=== PATIENT | male | born 1995 | race Caucasian/White ===

== ENCOUNTER 2019-07-27 17:20 | Emergency (ER) | payer BC ==
--- NOTE | 2019-07-27 17:40 | EDM.PDOC ---
ED HPI GENERAL MEDICAL PROBLEM - General Chief Complaint: Chest Pain Stated Complaint: chest pain Time Seen by Provider: 07/27/19 17:25 Source of Information: Reports: Patient History Limitations: Reports: No Limitations - History of Present Illness INITIAL COMMENTS - FREE TEXT/NARRATIVE: This patient is a 23 year old male that presents to the ER. Patient reports that he started about 2 days ago while at work having central chest pain. No known injury. Patient reports that pain continued into the evening after work and while at rest. No changes with rest or activity. Patient reports that the pain yesterday began to move into his left shoulder and then to his left arm to his fingers. He reports the pain is "dull", with some mild numbness to the left arm that has been constant. He reports that he took Tylenol about 2 hours ago, its the first thing he has taken for the pain. He now reports in the ER that his pain/numbness/dull is a 0/10. Onset Date: 07/25/19 Duration: Day(s): (2) Location: Reports: Chest, Upper Extremity, Left Quality: Reports: Dull Severity: Mild Improves with: Reports: None Worsens with: Reports: Movement (sometimes) Associated Symptoms: Reports: Chest Pain. 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 [No Known Home Meds] 07/27/19 [History] Past Medical History Respiratory History: Reports: Asthma Social & Family History - Tobacco Use Smoking Status *Q: Never Smoker - Caffeine Use Caffeine Use: Reports: Coffee, Soda - Recreational Drug Use Recreational Drug Use: No ED ROS GENERAL - Review of Systems Review Of Systems: See Below Constitutional: Reports: No Symptoms HEENT: Reports: Rhinitis. Denies: Sinus Problem, Throat Pain Respiratory: Reports: No Symptoms Cardiovascular: Reports: Chest Pain. Denies: Dyspnea on Exertion, Edema, Lightheadedness, Palpitations, PND, Syncope Endocrine: Reports: No Symptoms GI/Abdominal: Reports: No Symptoms. Denies: Abdominal Pain, Diarrhea, Nausea, Vomiting : Reports: No Symptoms Musculoskeletal: Reports: No Symptoms Skin: Reports: No Symptoms Neurological: Reports: Numbness (numbness, dullness LUE comes and goes. ). Denies: Confusion, Dizziness, Headache, Tingling Psychiatric: Reports: No Symptoms Hematologic/Lymphatic: Reports: No Symptoms Immunologic: Reports: No Symptoms ED EXAM, GENERAL - Physical Exam Exam: See Below Exam Limited By: No Limitations General Appearance: Alert, WD/WN, No Apparent Distress, Anxious Eye Exam: Bilateral Eye: Normal Inspection Ears: Normal External Exam, Normal Canal, Hearing Grossly Normal, Normal TMs Ear Exam: Bilateral Ear: Auricle Normal, Canal Normal, TM normal Nose: Normal Inspection, Normal Mucosa, No Blood Throat/Mouth: Normal Inspection, Normal Lips, Normal Teeth, Normal Gums, Normal Oropharynx, Normal Voice, No Airway Compromise Head: Atraumatic, Normocephalic Neck: Normal Inspection, Supple, Non-Tender, Full Range of Motion Respiratory/Chest: No Respiratory Distress, Lungs Clear, Normal Breath Sounds, No Accessory Muscle Use, Chest Non-Tender. No: Respiratory Distress, Decreased Breath Sounds, Crackles, Rales, Rhonchi, Wheezing, Stridor, Accessory Muscle Use , Retractions, Splinting, Prolonged Expiration Cardiovascular: Normal Peripheral Pulses, Regular Rate, Rhythm, No Edema, No Gallop, No JVD, No Murmur, No Rub Peripheral Pulses: 2+: Brachial (L), Brachial (R), Radial (L), Radial (R), Posterior Tibial (L), Posterior Tibial (R) GI/Abdominal: Soft, Non-Tender, No Distention, No Mass, Pelvis Stable Back Exam: Normal Inspection, Full Range of Motion. No: CVA Tenderness (L), CVA Tenderness (R), Decreased Range of Motion, Muscle Spasm, Paraspinal Tenderness, Vertebral Tenderness Extremities: Normal Inspection, Normal Range of Motion, No Pedal Edema, Normal Capillary Refill, Other (grabbing around the patients arm during exam he reported it mildly made it "dull". There is no erdness, swelling, heat, open wounds, loss of sensation, loss of motor function. No injury known. Pulses +2, cap refill < 2 sec, sensory/motor function intact. Neurovascular intact. ). No : Pedal Edema, Slow Capillary Refill, Joint Swelling, Limited Range of Motion, Increased Warmth, Redness Neurological: Alert, Oriented, CN II-XII Intact, Normal Cognition, Normal Gait, No Motor/Sensory Deficits Psychiatric: Normal Mood, Anxious Skin Exam: Warm, Dry, Intact, Normal Color, No Rash Lymphatic: No Adenopathy EKG INTERPRETATION EKG Date: 07/27/19 Time: 17:15 Rhythm: NSR Rate (Beats/Min): 91 [place]: Normal P-Wave: Present QRS: Normal ST-T: Normal QT: Normal Comparison: NA - No Prior EKG EKG Interpretation Comments: artifact, but no ST Elevation Course - Vital Signs Last Recorded V/S: Last Vital Signs Temp 98.0 F 07/27/19 17:20 Pulse 80 07/27/19 17:20 Resp 16 07/27/19 17:35 BP 138/72 07/27/19 17:50 Pulse Ox 98 07/27/19 17:35 - Orders/Labs/Meds Orders: Active Orders 24 hr Category Date Time Status EKG Documentation Completion [RC] STAT Care 07/27/19 17:20 Active Chest 2V [CR] Stat Exams 07/27/19 17:23 Taken Labs: Laboratory Tests 07/27/19 07/27/19 07/27/19 Range/Units 17:35 17:35 17:35 WBC 5.1 (5.0-10.0) 10^3/uL RBC 5.31 (4.50-6.00) 10^6/uL Hgb 17.2 (14.0-18.0) g/dL Hct 48.1 (40.0-54.0) % MCV 90.6 (82.0-94.0) fL MCH 32.4 H (27.0-32.0) pg MCHC 35.8 (33.0-38.0) g/dL RDW Coeff of Antoine 12.9 (11.0-15.0) % Plt Count 208 (150-400) 10^3/uL Neut % (Auto) 40.2 (35-85) % Lymph % (Auto) 45.7 (10-55) % Emanuel % (Auto) 11.9 (0-16) % Eos % (Auto) 1.8 (0-5) % Baso % (Auto) 0.4 (0-3) % Neut # (Auto) 2.07 (1.80-7.00) 10^3/uL Lymph # (Auto) 2.35 (1.00-4.80) 10^3/uL Emanuel # (Auto) 0.61 (0.00-0.80) 10^3/uL Eos # (Auto) 0.09 (0.00-0.45) 10^3/uL Baso # (Auto) 0.02 10^3/uL PT 10.0 (9.7-12.3) SEC INR 0.99 (0.92-1.18) Sodium 140 (136-145) mEq/L Potassium 4.0 (3.5-5.0) mEq/L Chloride 105 (98-106) mEq/L Carbon Dioxide 25 (21-32) mmol/L BUN 8 (7-18) mg/dL Creatinine 1.0 (0.7-1.3) mg/dL Est Cr Clr Drug Dosing 126.10 mL/min Estimated GFR (MDRD) > 60 (>=60) mL/min Glucose 132 H (75-99) mg/dL Calcium 8.8 (8.4-10.1) mg/dL Total Bilirubin 0.5 (0.0-1.0) mg/dL AST 20 (15-37) U/L ALT 57 (12-78) U/L Alkaline Phosphatase 75 (46-116) U/L Lactate Dehydrogenase 176 (100-190) U/L Creatine Kinase 176 (35-232) U/L Troponin I < 0.017 (0.00-0.06) ng/mL Total Protein 7.4 (6.4-8.2) g/dL Albumin 4.2 (3.4-5.0) g/dL Lipase 142 (73-393) U/L - Radiology Interpretation Free Text/Narrative:: CXR: no acute findings - Re-Assessments/Exams Free Text/Narrative Re-Assessment/Exam: 07/27/19 18:09 HEART SCORE 0. Will discharge. Departure - Departure Time of Disposition: 18:07 Disposition: Home, Self-Care 01 Condition: Good Clinical Impression: Atypical chest pain Instructions: Chest Wall Pain, [id number], Nonspecific Chest Pain, Adult, [id number] Referrals: PCP,None [Primary Care Provider] - Forms: ED Department Discharge Additional Instructions: Followup with primary care provider as needed and for a recheck in the Clinic Return to the ER for worsening of condition or any emergent concerns Tylenol or Motrin for pain as needed Sepsis Event Note - Evaluation Sepsis Screening Result: No Definite Risk - Focused Exam Date Exam was Performed: 07/28/19 Time Exam was Performed: 09:19 - My Orders Last 24 Hours: My Active Orders 07/27/19 17:20 EKG Documentation Completion [RC] STAT 07/27/19 17:23 Chest 2V [CR] Stat - Assessment/Plan Last 24 Hours: My Active Orders 07/27/19 17:20 EKG Documentation Completion [RC] STAT 07/27/19 17:23 Chest 2V [CR] Stat Plan: PLEASE SEE RN NOTE FOR PFSH
[2019-07-27 17:59] LABS: CHLORIDE,CL 105 mEq/L (98-106); SODIUM,NA 140 mEq/L (136-145)
== END 2019-07-27 18:20 | disposition home or self-care (01) ==
LOC: CC.ED 17:20
DX: R07.89 Other chest pain (principal)
CPT/HCPCS: 36415; 71046; 80053; 82550; 83615; 83690; 84484; 85025; 85610; 93005; 99285-25